=== PATIENT | female | born 2000 | race Caucasian/White ===

== ENCOUNTER 2019-01-24 20:18 | Emergency (ER) | payer BC ==
--- NOTE | 2019-01-24 20:29 | UC ---
Abdominal Pain Female HPI - HPI Summary HPI Summary: 18 yo female presents with epigastric pain. She tells me that 3 days ago she developed pain in her upper abdomen that is worse after eating and at nighttime. She points to the pain being in her epigastric region and radiating to her right and left upper abdomen. She tells me that she has an exam in 2 days and that this discomfort is "getting in the way of her studying". She took a Zantac earlier today with no change in her symptoms. She is feeling well otherwise and denies fever, chills, recent illness, sore throat, cough, SOB, chest pain/palpitations, nausea, vomiting, diarrhea, change in stool, or change in diet. - History of Current Complaint Stated Complaint: ABDOMINAL AND BACK PAIN Time Seen by Provider: 01/24/19 20:29 Hx Obtained From: Patient Onset/Duration: Sudden Onset Timing: Constant Severity Initially: Moderate Severity Currently: Moderate Pain Intensity: 7 Pain Scale Used: 0-10 Numeric Location: Epigastric Allergies/Adverse Reactions: Allergies Allergy/AdvReac Type Severity Reaction Status Date / Time No Known Allergies Allergy Verified 01/24/19 20:30 Home Medications: Home Medications Norethindrone AC-Eth Estradiol [Junel 1 mg-20 Mcg Tablet] 1 each PO DAILY [History Confirmed 01/24/19] Ranitidine TAB (NF) [Zantac TAB (NF)] 150 mg PO Q8HR PRN 01/24/19 [History Confirmed 01/24/19] PMH/Surg Hx/FS Hx/Imm Hx GI/ History: Gastroesophageal Reflux - Surgical History Surgical History: None - Family History Known Family History: Positive: None - Social History Occupation: Student Lives: Dormitory/Roommates Alcohol Use: Occasionally Substance Use Type: None Smoking Status (MU): Never Smoked Tobacco Review of Systems All Other Systems Reviewed And Are Negative: Yes Constitutional: Positive: Negative Skin: Positive: Negative Respiratory: Positive: Negative Cardiovascular: Positive: Negative Gastrointestinal: Positive: Abdominal Pain Genitourinary: Positive: Negative Neurovascular: Positive: Negative Neurological: Positive: Negative Psychological: Positive: Negative Physical Exam - Summary Physical Exam Summary: GENERAL: NAD. WDWN. No pain distress. SKIN: No rashes, sores, lesions, or open wounds. NECK: Supple. Nontender. No lymphadenopathy. CHEST: CTAB. No r/r/w. No accessory muscle use. Breathing comfortably and in no distress. CV: RRR. Without m/r/g. Pulses intact. Cap refill <2seconds ABDOMEN: Mild TTP epigastric, RUQ, and LUQ. Negative huffman sign. Soft. No distention or guarding. No organomegaly. No CVA tenderness. Bowel sounds present. No mcburney point tenderness. NEURO: Alert. PSYCH: Age appropriate behavior. Triage Information Reviewed: Yes Vital Signs: Vital Signs: Temp Pulse Resp BP Pulse Ox 100.2 F 91 16 138/93 99 01/24/19 20:22 01/24/19 20:22 01/24/19 20:22 01/24/19 20:22 01/24/19 20:22 Laboratory Tests 01/24/19 01/24/19 20:39 20:41 POC Urine Color Yellow POC Urine Clarity Clear POC Urine pH 7.0 POC Ur Specif Allison 1.015 POC Urine Protein Negative POC Ur Glucose (UA) Negative POC Urine Ketones Negative POC Urine Blood Negative POC Urine Nitrite Negative POC Urine Bilirubin Negative POC Urine Urobilinogen 0.2 POC U Leukocyte Esteras Negative POC Ur Test Negative Vital Signs Reviewed: Yes Re-Evaluation - Re-Evaluation First Eval Re-Evaluation Time: 21:07 Change: Unchanged Comment: S/p GI cocktail: Pt states "pain feels a little better, but is still there" Abd Pain Female Course/Dx - Course Course Of Treatment: UA and negative. Suspect GERD vs biliary colic vs gastritis. In the clinic, pt was given GI cocktail with maalox, lidocaine viscous, and pepcid for her symptoms. She reported very little improvement. At this time, I discussed with pt that my suspicions about the above, but most suspect gastritis at this time and recommended trying PPI and/or carafate at this time. She stated that she wished to find the cause of her pain tonight and that she cannot concentrate and study with this discomfort. I advised her if she wished for further testing/imaging/ labwork she should be further evaluated in the ED. She voiced understanding and wished to go to the ED by private vehicle. - Differential Dx/Diagnosis Provider Diagnosis: Epigastric pain Discharge - Sign-Out/Discharge Documenting (check all that apply): Patient Departure All imaging exams completed and their final reports reviewed: No Studies - Discharge Plan Condition: Stable Disposition: HOME Patient Education Materials: Gastritis (ED), Diet for Stomach Ulcers and Gastritis (ED) Forms: *School Release Referrals: No Primary Care Phys,NOPCP [Primary Care Provider] - Additional Instructions: If you develop a fever, shortness of breath, chest pain, new or worsening symptoms - please call your PCP or go to the ED. - Billing Disposition and Condition Condition: STABLE Disposition: Home - Attestation Statements Provider Attestation: I was available for consult. This patient was seen by the ROHAN. The patient was not presented to, seen by, or examined by me. -Sherly
[2019-01-24 20:30] VITALS: BP 138/93
[2019-01-24] MEDS ORDERED: Famotidine TAB* 20 MG PO ONE (20:42)
[2019-01-24] MEDS ORDERED: Lidocaine 2% VISCOUS* 15 ML UDC PO ONE (20:42)
[2019-01-24] MEDS ORDERED: Al Hydrox/Mg Hydrox/Simet LIQ* 30 ML UDC PO ONE (20:42)
== END 2019-01-24 21:17 | disposition home or self-care (01) ==
LOC: UCEAST 20:18
DX: R10.13 Epigastric pain (principal); Z32.02 Encounter for pregnancy test, result negative; K21.9 Gastro-esophageal reflux disease without esophagitis
CPT/HCPCS: 81003; 84702; 99202; A9270-GY; G0463

== ENCOUNTER 2019-09-05 20:53 | Emergency (ER) | payer BC ==
--- NOTE | 2019-09-05 21:01 | UC ---
Skin Complaint HPI - HPI Summary HPI Summary: Patient reports rash to inner thighs, vaginal area, buttocks x1 wk. Patient reports intense itching. Has had unprotected sex and sex with condom which is what caused this issue. went to [facility] and rx'd: ketoconazole and bactroban. meds not helping. she is on control. - History of Current Complaint Chief Complaint: UCSkin Time Seen by Provider: 09/05/19 21:01 Stated Complaint: ITCHINESS Hx Obtained From: Patient Hx Last Menstrual Period: 12/23/18 ?: No Aggravating Factor(s): Clothing, Touch Alleviating Factor(s): Nothing - Allergy/Home Medications Allergies/Adverse Reactions: Allergies Allergy/AdvReac Type Severity Reaction Status Date / Time No Known Allergies Allergy Verified 01/24/19 20:30 PMH/Surg Hx/FS Hx/Imm Hx - Additional Past Medical History Additional PMH: no chronic condition. Previously Healthy: Yes - Surgical History Surgical History: None - Family History Known Family History: Positive: None - Social History Alcohol Use: Occasionally Substance Use Type: None Smoking Status (MU): Never Smoked Tobacco Review of Systems All Other Systems Reviewed And Are Negative: Yes Constitutional: Negative: Fever Genitourinary: Positive: Other - vaginal itching. Neurological: Negative: Headache Physical Exam Triage Information Reviewed: Yes Appearance: Well-Appearing Vital Signs Reviewed: Yes Respiratory: Positive: No respiratory distress Pelvic Exam: Positive: Other - external exam has irritation/redness but no sores. +irritated follicles.. Negative: Lesions Neurological: Positive: Alert Skin: Negative: Rashes Course/Dx - Course Course Of Treatment: One week of vaginitis with exposure to unprotected sex. declines hiv testing. urine hcg neg. Pt. self swabbed for Gc/Chlam, Affirm. tx'ing for presumed yeast with fluconazole. She does shave so also has some irritation from that. vitals good. - Differential Diagnoses - Skin Complaint Differential Diagnoses: Other - Diagnoses Provider Diagnosis: Vaginitis Discharge ED - Sign-Out/Discharge Documenting (check all that apply): Patient Departure All imaging exams completed and their final reports reviewed: No Studies - Discharge Plan Condition: Good Disposition: HOME Prescriptions: Fluconazole 150 MG TAB* [Diflucan 150 MG TAB*] 150 mg PO ED ONCE #1 tablet Patient Education Materials: Itchy Skin (ED) Referrals: No Primary Care Phys,NOPCP [Primary Care Provider] - Additional Instructions: If not improving please return to [facility]. If something is positive we will call you. - Billing Disposition and Condition Condition: GOOD Disposition: Home
[2019-09-05 21:09] VITALS: BP 128/68
[2019-09-07 13:41] LABS: Chlamydia trachomatis NAA Negative (Negative); Neisseria gonorrhoeae (GC) NAA Negative (Negative)
--- NOTE | 2019-09-08 07:58 | ED ---
Imaging and Labs Follow Up Labs/Culture Result: neg gardnerella, neg ashvin, neg trich no change rodrigo
== END 2019-09-05 21:37 | disposition home or self-care (01) ==
LOC: UCEAST 20:53
DX: N76.0 Acute vaginitis (principal); Z32.02 Encounter for pregnancy test, result negative
CPT/HCPCS: 84702; 87480; 87491; 87510; 87591; 87660; 99212; G0463